=== PATIENT | female | born 1945 | race Caucasian/White ===

== ENCOUNTER → 2018-06-30 | Outpatient (CLI) | payer MEDICARE, BC ==
[~2018-06-30] MED LIST: BIOT25005 PO; CHOL200024 PO; CYCL5TAB PO; FERR324T8 PO; HYDR-3622 PO; HYDR25TA6 PO; LACT1CAP37 PO; LISI-170 PO; MAGN400T7 PO; ONDA8TAB9 PO; PANT40TA3 PO; POTA99TA2 PO; SERT100T PO; VIT1CAPS42 PO
[2018-06-30 16:31] LABS: BASOPHILS # (AUTO) 0.05 x10^3/uL (0-0.1); BASOPHILS % (AUTO) 1 % (0-1); EOSINOPHILS # (AUTO) 0.63 x10^3/uL (0-0.4); EOSINOPHILS % (AUTO) 6 % (1-7); LYMPHOCYTES # (AUTO) 3.23 x10^3/uL (1-3.4); LYMPHOCYTES % (AUTO) 30 % (22-44); MD NO; MEAN CORPUSCULAR HEMOGLOBIN 28.3 pg (27.0-34.8); MEAN CORPUSCULAR HGB CONC 32.3 g/dL (32.4-35.8); MEAN CORPUSCULAR VOLUME 87.7 fL (80-100); MEAN PLATELET VOLUME 7.7 fL (7.4-10.4); MONOCYTES # (AUTO) 1.04 x10^3/uL (0.2-0.8); MONOCYTES % (AUTO) 9 % (2-9); NEUTROPHILS # (AUTO) 6.01 x10^3/uL (1.8-6.8); NEUTROPHILS % (AUTO) 55 % (42-75); PLATELET COUNT 439 x10^3/uL (130-400); RED BLOOD COUNT 4.29 x10^6/uL (3.82-5.3); RED CELL DISTRIBUTION WIDTH 16.1 % (9.6-15.2)
[2018-06-30 16:38] LABS: INTERNATIONAL NORMALIZED RATIO 0.99 (0.93-1.1); PROTHROMBIN TIME 10.5 Seconds (9.6-11.5)
[2018-06-30 16:42] LABS: ALANINE AMINOTRANSFERASE 19 U/L (12-78); ALBUMIN 3.1 g/dL (3.4-5.0); ANION GAP 7 mmol/L (5-15); CALCIUM 9.3 mg/dL (8.5-10.1); CHLORIDE 102 mmol/L (98-107)
[2018-06-30 16:44] LABS: ALKALINE PHOSPHATASE 111 U/L (45-117); BILIRUBIN,TOTAL 0.2 mg/dL (0.2-1.0); CREATININE 0.81 mg/dL (0.55-1.02); TOTAL PROTEIN 7.8 g/dL (6.4-8.2)
[2018-06-30 17:36] LABS: HEMOGLOBIN A1C 6.4 % (4.2-6.3)
[2018-06-30 18:02] LABS: CULTURE INDICATED? NO; MICROSCOPIC NOT IND
== END | disposition home or self-care (01) ==
LOC: STAR 15:06
PROVIDERS: ATTEND Orthopaedic Surgery
DX: Z01.818 Encounter for other preprocedural examination (principal); T84.84XA Pain due to internal orthopedic prosthetic devices, implants and grafts, initial encounter; Z96.641 Presence of right artificial hip joint
CPT/HCPCS: 36415; 80053; 81003; 83036; 85025; 85610; 85730; 87081; 87806; 93005; G0475

== ENCOUNTER 2018-07-06 08:46 | Inpatient (IN) | payer MEDICARE, BC ==
[~2018-07-06] VITALS: Ht 162.6 cm; Wt 90.8 kg
[~2018-07-06 08:46] MED LIST changes: +EPINEPHRINE 1 MG/ML, 1ML ONE; +KETOROLAC 60 MG/2 ML ONE; +ROPIvacaine/PF 0.2%, 20 ML ONE; +SODIUM CHLORIDE 0.9% 100 ML ONE; +TRANEXAMIC ACID 100 MG/ML, 10ML ONE
[2018-07-06] MEDS ORDERED: LACTATED RINGERS 1,000 ML IV SCH (09:40)
[2018-07-06] MEDS ORDERED: BUPIVACAINE IMPLANT (09:45)
[2018-07-06] MEDS ORDERED: HYDROMORPHONE IMPLANT (09:45)
[2018-07-06] MEDS ORDERED: VANCOMYCIN PER PHARMACY MC ONE (09:47)
[2018-07-06 09:53] VITALS: BP 135/76
[2018-07-06] MEDS ORDERED: ACETAMINOPHEN 500 MG TABLET PO ONE (10:00)
[2018-07-06] MEDS ORDERED: GABAPENTIN 300 MG CAPSULE PO ONE (10:00)
[2018-07-06] MEDS ORDERED: VANCOMYCIN 1,700 MG in SODIUM CHLORIDE 0.9% 250 ML IV ONE (10:30)
[2018-07-06] MEDS ORDERED: FENTANYL PF 250 MCG/5ML ONE (14:33)
[2018-07-06] MEDS ORDERED: MIDAZOLAM 1 MG/ML, 2ML ONE (14:33)
[2018-07-06] MEDS ORDERED: SUCCINYLCHOLINE 20 MG/ML, 10ML ONE (16:00)
[2018-07-06] MEDS ORDERED: ROCURONIUM 10 MG/ML,10ML ONE (16:00)
[2018-07-06] MEDS ORDERED: CEFAZOLIN 1,000 MG ONE (16:00)
[2018-07-06] MEDS ORDERED: EPHEDRINE 50 MG/ML, 1ML ONE (16:00)
[2018-07-06] MEDS ORDERED: PROPOFOL 10 MG/ML, 20ML ONE (16:00)
[2018-07-06] MEDS ORDERED: VANCOMYCIN 1,000 MG ONE (16:38)
[2018-07-06] MEDS ORDERED: METHYLENE BLUE 10 MG/ML 10ML ONE (16:55)
[2018-07-06] MEDS ORDERED: PROMETHAZINE 12.5 MG SUPP PR PRN ×3 (18:00→20:30)
[2018-07-06] MEDS ORDERED: hydrALAzine 20 MG/ML, 1ML IV PRN (18:00)
[2018-07-06] MEDS ORDERED: OXYcodone 5 MG/5 ML ORAL.SOL UDC PO PRN (18:00)
[2018-07-06] MEDS ORDERED: LABETALOL 5MG/ML, 20ML IV PRN (18:00)
[2018-07-06] MEDS ORDERED: ONDANSETRON 2MG/ML, 2ML IV PRN ×2 (18:00→19:00)
[2018-07-06] MEDS ORDERED: ONDANSETRON ODT 8 MG PO PRN (18:00)
[2018-07-06] MEDS ORDERED: HYDROmorphone 2 MG/ML, 1ML ONE ×2 (18:55→19:49)
[2018-07-06] MEDS ORDERED: FENTANYL PF 100 MCG/2ML ONE (18:55)
[2018-07-06] MEDS ORDERED: ALUMINUM/MAG/SIMETHICONE 30 ML UDC PO PRN (19:00)
[2018-07-06] MEDS ORDERED: HYDROmorphone 1 MG/ML, 1ML IV PRN (19:00)
[2018-07-06] MEDS ORDERED: OXYcodone IR 5MG TABLET PO PRN (19:00)
[2018-07-06] MEDS ORDERED: ONDANSETRON 4 MG TABLET PO PRN (19:00)
[2018-07-06] MEDS ORDERED: LORazepam 1MG TABLET PO PRN (19:00)
[2018-07-06] MEDS ORDERED: BISACODYL 10 MG SUPP PR PRN (19:00)
[2018-07-06] MEDS ORDERED: DIPHENHYDRAMINE 50 MG CAPSULE PO PRN (19:00)
[2018-07-06] MEDS ORDERED: MAGNESIUM HYDROXIDE 8%, 30ML UDC PO PRN (19:00)
[2018-07-06] MEDS ORDERED: ZOLPIDEM 5MG TABLET PO PRN (19:00)
[2018-07-06] MEDS: FENTANYL PF 100 MCG/2ML IV PRN ×2 (19:00→19:48)
[2018-07-06] MEDS ORDERED: PROMETHAZINE 25 MG/ML, 1ML IM PRN (19:00)
[2018-07-06] MEDS ORDERED: SENNA/DOCUSATE TABLET PO PRN (19:00)
[2018-07-06] MEDS ORDERED: VANCOMYCIN PER PHARMACY MC PRN (19:00)
[2018-07-06] MEDS ORDERED: DIAZEPAM 5 MG TABLET PO PRN (19:00)
[2018-07-06] MEDS: HYDROmorphone 1 MG/ML, 1ML IV PRN ×6 (19:05→19:59)
[2018-07-06] MEDS ORDERED: ONDANSETRON 2MG/ML, 2ML ONE (19:14)
[2018-07-06] MEDS ORDERED: TRANEXAMIC ACID 1,000 MG in SODIUM CHLORIDE 0.9% 100 ML IVPB ONE (19:15)
[2018-07-06] MEDS ORDERED: OXYcodone 5 MG/5 ML ORAL.SOL UDC ONE (19:31)
[2018-07-06] MEDS ORDERED: PROMETHAZINE 25 MG/ML, 1ML ONE (20:02)
[2018-07-06] MEDS ORDERED: PROMETHAZINE 25 MG/ML, 1ML IV PRN (20:30)
[2018-07-06] MEDS ORDERED: PHARMACOKINETIC MONITORING MC PRN (21:30)
[2018-07-06] MEDS ORDERED: PHARMACOKINETIC CONSULTATION MC ONE (21:30)
[2018-07-06] MEDS: PANTOPROZOLE 40MG TABLET PO SCH (23:21)
[2018-07-06] MEDS: DOCUSATE 100 MG CAPSULE PO SCH (23:21)
[2018-07-06] MEDS: CYCLOBENZAPRINE 10 MG TABLET PO SCH (23:21)
[2018-07-06] MEDS: D5%-0.45% NACL 1,000 ML IV SCH (23:24)
[2018-07-07] VITALS (9 sets, daily range): BP systolic 80–106; BP diastolic 41–62
[2018-07-07] MEDS: CEFAZOLIN PMX 2GM/50ML 50 ML IVPB SCH ×3 (00:54→18:07)
[2018-07-07] MEDS: ACETAMINOPHEN 650 MG/20.3 ML UDC PO PRN ×2 (03:02→10:07)
[2018-07-07] MEDS: MULTIVITAMINS/MINERALS TABLET PO SCH (08:39)
[2018-07-07] MEDS: HYDROCHLOROTHIAZIDE 25 MG TABLET PO SCH (08:39)
[2018-07-07] MEDS: LISINOPRIL 20 MG TABLET PO SCH (08:39)
[2018-07-07] MEDS: SERTRALINE 100MG TABLET PO SCH (08:39)
[2018-07-07] MEDS: PANTOPROZOLE 40MG TABLET PO SCH (08:39)
[2018-07-07] MEDS: DOCUSATE 100 MG CAPSULE PO SCH ×2 (08:39→21:36)
[2018-07-07] MEDS: CYCLOBENZAPRINE 10 MG TABLET PO SCH ×2 (09:37→21:36)
[2018-07-07] MEDS: D5%-0.45% NACL 1,000 ML IV SCH (11:25)
[2018-07-07] MEDS ORDERED: SODIUM CHLORIDE 0.9%, 500ML IVBOLUS ONE (13:00)
[2018-07-07] MEDS: HYDROcodone/APAP 5/325 TABLET PO PRN ×2 (16:39→21:36)
[2018-07-07] MEDS ORDERED: VANCOMYCIN 1,700 MG in SODIUM CHLORIDE 0.9% 250 ML IV SCH (17:00)
[2018-07-07] MEDS: ASPIRIN 81 MG TABLET CHEW PO SCH (18:06)
[2018-07-07] MEDS: KETOROLAC 30 MG/1 ML IV SCH (18:07)
[2018-07-08] VITALS (10 sets, daily range): BP systolic 91–98; BP diastolic 46–61
[2018-07-08] MEDS ORDERED: CATHFLO-ALTEPLASE 2 MG/2 ML CATHFLUSH ONE (00:30)
[2018-07-08] MEDS: D5%-0.45% NACL 1,000 ML IV SCH ×2 (00:43→11:00)
[2018-07-08] MEDS: HYDROcodone/APAP 5/325 TABLET PO PRN ×5 (01:35→21:15)
[2018-07-08] MEDS: CEFAZOLIN PMX 2GM/50ML 50 ML IVPB SCH ×3 (02:32→18:50)
[2018-07-08] MEDS: KETOROLAC 30 MG/1 ML IV SCH ×2 (03:20→11:16)
[2018-07-08 03:21] LABS: BASOPHILS # (AUTO) 0.07 x10^3/uL (0-0.1); BASOPHILS % (AUTO) 1 % (0-1); EOSINOPHILS # (AUTO) 0.57 x10^3/uL (0-0.4); EOSINOPHILS % (AUTO) 7 % (1-7); LYMPHOCYTES # (AUTO) 1.91 x10^3/uL (1-3.4); LYMPHOCYTES % (AUTO) 24 % (22-44); MD NO; MEAN CORPUSCULAR HEMOGLOBIN 29.5 pg (27.0-34.8); MEAN CORPUSCULAR HGB CONC 33.2 g/dL (32.4-35.8); MEAN CORPUSCULAR VOLUME 88.9 fL (80-100); MEAN PLATELET VOLUME 7.5 fL (7.4-10.4); MONOCYTES # (AUTO) 0.84 x10^3/uL (0.2-0.8); MONOCYTES % (AUTO) 11 % (2-9); NEUTROPHILS # (AUTO) 4.59 x10^3/uL (1.8-6.8); NEUTROPHILS % (AUTO) 58 % (42-75); PLATELET COUNT 233 x10^3/uL (130-400); RED BLOOD COUNT 2.22 x10^6/uL (3.82-5.3); RED CELL DISTRIBUTION WIDTH 15.9 % (9.6-15.2)
[2018-07-08 03:33] LABS: ALANINE AMINOTRANSFERASE 11 U/L (12-78); ALBUMIN 1.9 g/dL (3.4-5.0); ANION GAP 4 mmol/L (5-15); CALCIUM 7.6 mg/dL (8.5-10.1); CHLORIDE 106 mmol/L (98-107)
[2018-07-08 03:40] LABS: ALKALINE PHOSPHATASE 66 U/L (45-117); BILIRUBIN,TOTAL 0.1 mg/dL (0.2-1.0); TOTAL PROTEIN 4.7 g/dL (6.4-8.2)
[2018-07-08] MEDS: ASPIRIN 81 MG TABLET CHEW PO SCH ×2 (07:23→17:17)
[2018-07-08] MEDS: CYCLOBENZAPRINE 10 MG TABLET PO SCH ×2 (09:58→20:22)
[2018-07-08] MEDS: PANTOPROZOLE 40MG TABLET PO SCH (09:58)
[2018-07-08] MEDS: DOCUSATE 100 MG CAPSULE PO SCH ×2 (09:59→20:22)
[2018-07-08] MEDS: MULTIVITAMINS/MINERALS TABLET PO SCH (09:59)
[2018-07-08] MEDS: LISINOPRIL 20 MG TABLET PO SCH (09:59)
[2018-07-08] MEDS: HYDROCHLOROTHIAZIDE 25 MG TABLET PO SCH (09:59)
[2018-07-08] MEDS: SERTRALINE 100MG TABLET PO SCH (09:59)
[2018-07-09] VITALS (8 sets, daily range): BP systolic 104–138; BP diastolic 61–72
[2018-07-09] MEDS: D5%-0.45% NACL 1,000 ML IV SCH ×3 (00:31→21:00)
[2018-07-09] MEDS: CEFAZOLIN PMX 2GM/50ML 50 ML IVPB SCH ×2 (01:58→10:25)
[2018-07-09] MEDS: HYDROcodone/APAP 5/325 TABLET PO PRN ×5 (02:02→21:19)
[2018-07-09] MEDS: ASPIRIN 81 MG TABLET CHEW PO SCH ×2 (06:11→17:38)
[2018-07-09] MEDS: PANTOPROZOLE 40MG TABLET PO SCH (09:27)
[2018-07-09] MEDS: SERTRALINE 100MG TABLET PO SCH (09:27)
[2018-07-09] MEDS: CYCLOBENZAPRINE 10 MG TABLET PO SCH ×2 (09:28→21:14)
[2018-07-09] MEDS: HYDROCHLOROTHIAZIDE 25 MG TABLET PO SCH (09:28)
[2018-07-09] MEDS: DOCUSATE 100 MG CAPSULE PO SCH ×2 (09:28→21:14)
[2018-07-09] MEDS: LISINOPRIL 20 MG TABLET PO SCH (09:28)
[2018-07-09] MEDS: MULTIVITAMINS/MINERALS TABLET PO SCH (09:32)
[2018-07-09] MEDS: ERTAPENEM 1 GM in SODIUM CHLORIDE 0.9% 50 ML IV SCH (18:23)
[2018-07-10 01:57] VITALS: BP 115/73
[2018-07-10] MEDS: HYDROcodone/APAP 5/325 TABLET PO PRN ×5 (03:06→23:03)
[2018-07-10] MEDS: ASPIRIN 81 MG TABLET CHEW PO SCH ×2 (06:01→17:50)
[2018-07-10] MEDS: D5%-0.45% NACL 1,000 ML IV SCH ×2 (06:03→17:12)
[2018-07-10 06:53] LABS: MEAN CORPUSCULAR HEMOGLOBIN 30.6 pg (27.0-34.8); MEAN CORPUSCULAR HGB CONC 33.8 g/dL (32.4-35.8); MEAN CORPUSCULAR VOLUME 90.6 fL (80-100); MEAN PLATELET VOLUME 7.7 fL (7.4-10.4); PLATELET COUNT 302 x10^3/uL (130-400); RED BLOOD COUNT 3.08 x10^6/uL (3.82-5.3); RED CELL DISTRIBUTION WIDTH 15.5 % (9.6-15.2)
[2018-07-10 07:25] LABS: BASOPHILS # (AUTO) 0.08 x10^3/uL (0-0.1); BASOPHILS % (AUTO) 1 % (0-1); EOSINOPHILS # (AUTO) 0.73 x10^3/uL (0-0.4); EOSINOPHILS % (AUTO) 9 % (1-7); LYMPHOCYTES # (AUTO) 2.72 x10^3/uL (1-3.4); LYMPHOCYTES % (AUTO) 34 % (22-44); MD MORPH REVIEW ONLY; MONOCYTES % (AUTO) 9 % (2-9); NEUTROPHILS # (AUTO) 3.71 x10^3/uL (1.8-6.8); NEUTROPHILS % (AUTO) 47 % (42-75)
[2018-07-10 07:26] LABS: <PLATELET ESTIMATE> ADEQUATE; <PLT MORPHOLOGY> NORMAL PLT MORPH; ANISOCYTOSIS 1+; POLYCHROMASIA 1+
[2018-07-10] MEDS: HYDROCHLOROTHIAZIDE 25 MG TABLET PO SCH (07:51)
[2018-07-10] MEDS: PANTOPROZOLE 40MG TABLET PO SCH (07:51)
[2018-07-10] MEDS: MULTIVITAMINS/MINERALS TABLET PO SCH (07:51)
[2018-07-10] MEDS: LISINOPRIL 20 MG TABLET PO SCH (07:54)
[2018-07-10] MEDS: SERTRALINE 100MG TABLET PO SCH (07:55)
[2018-07-10] MEDS: DOCUSATE 100 MG CAPSULE PO SCH ×2 (07:55→19:48)
[2018-07-10] MEDS: CYCLOBENZAPRINE 10 MG TABLET PO SCH ×2 (07:55→19:48)
[2018-07-10 07:57] VITALS: BP 137/68
[2018-07-10 14:35] VITALS: BP 111/67
[2018-07-10] MEDS ORDERED: ERTA1VIA IVPB (15:12)
[2018-07-10] MEDS: ERTAPENEM 1 GM in SODIUM CHLORIDE 0.9% 50 ML IV SCH (17:51)
[2018-07-10 19:27] VITALS: BP 111/65
== END 2018-07-11 01:00 | DRG 466 ==
LOC: ORIP 08:46 → 4NOR 20:50
PROVIDERS: ADMIT Orthopaedic Surgery; ATTEND Orthopaedic Surgery
PROC: 0SR90EZ Replacement of Right Hip Joint with Articulating Spacer, Open Approach (ICD-10-PCS; 2018-07-06)
PROC: 0SP90JZ Removal of Synthetic Substitute from Right Hip Joint, Open Approach (ICD-10-PCS; principal; 2018-07-06 13:15)
PROC: 30233N1 Transfusion of Nonautologous Red Blood Cells into Peripheral Vein, Percutaneous Approach (ICD-10-PCS; 2018-07-07)
DX: T84.51XA Infection and inflammatory reaction due to internal right hip prosthesis, initial encounter (principal); E43 Unspecified severe protein-calorie malnutrition; D62 Acute posthemorrhagic anemia; Y92.89 Other specified places as the place of occurrence of the external cause; Y83.1 Surgical operation with implant of artificial internal device as the cause of abnormal reaction of the patient, or of later complication, without mention of misadventure at the time of the procedure; I10 Essential (primary) hypertension; G89.29 Other chronic pain; Z85.028 Personal history of other malignant neoplasm of stomach; Z82.3 Family history of stroke; Z83.3 Family history of diabetes mellitus; Z86.19 Personal history of other infectious and parasitic diseases; Z87.891 Personal history of nicotine dependence; Z88.8 Allergy status to other drugs, medicaments and biological substances; Z98.1 Arthrodesis status
CPT/HCPCS: 36415; 71045; 72170; 80053; 82310; 85014; 85018; 85025; 86140; 86850; 86900; 86923; 87015; 87070; 87075; 87077; 87102; 87116; 87176; 87181; 87205; 87206; C1713; G0378; J0171; J0690; J1170; J1335; J1885; J2250; J2405; J2550; J2704; J2795; J2997; J3010; J3370; C1776; J0330; J7040; J7050; J7120; P9016; Q9968

== ENCOUNTER 2018-09-28 07:15 | Inpatient (IN) | payer MEDICARE, BC ==
[~2018-09-28] VITALS: Ht 162.6 cm; Wt 98.5 kg
[~2018-09-28 07:15] MED LIST changes: +BUPIVACAINE 0.25% ONE; +BUPIVACAINE IMPLANT; +BUPIVACAINE/PF 0.5% ONE; +ERTA1VIA IVPB; +HYDROMORPHONE IMPLANT; +LIDOCAINE 1%, 20ML ONE; -SODIUM CHLORIDE 0.9% 100 ML ONE; +SODIUM CHLORIDE 0.9% 50 ML ONE; +TRIAMCINOLONE ACETONIDE 40 MG/ML, 1ML ONE; +VANCOMYCIN 1,000 MG ONE
[2018-09-28] MEDS ORDERED: VANCOMYCIN PER PHARMACY MC STA (07:34)
[2018-09-28] MEDS ORDERED: PLEASE ENTER HEIGHT AND WEIGHT MC SCH (08:00)
[2018-09-28] MEDS ORDERED: LACTATED RINGERS 1,000 ML IV SCH (08:01)
[2018-09-28] MEDS ORDERED: TRAM50TA2 PO (08:09)
[2018-09-28] MEDS ORDERED: OXYC5CAP2 PO (08:09)
[2018-09-28] MEDS ORDERED: CYCL5TAB PO (08:09)
[2018-09-28] MEDS ORDERED: ASCO100019 PO (08:09)
[2018-09-28] MEDS ORDERED: CELE200C PO (08:09)
[2018-09-28] MEDS ORDERED: GABAPENTIN 300 MG CAPSULE PO STA (08:20)
[2018-09-28] MEDS ORDERED: LIDOCAINE-MPF 1%, 2ML INFIL ONE (08:30)
[2018-09-28] MEDS ORDERED: VANCOMYCIN 1,900 MG in SODIUM CHLORIDE 0.9% 250 ML IV ONE (08:30)
[2018-09-28] MEDS ORDERED: MIDAZOLAM 1 MG/ML, 2ML ONE (08:48)
[2018-09-28] MEDS ORDERED: FENTANYL PF 250 MCG/5ML ONE (08:48)
[2018-09-28] MEDS ORDERED: MEPERIDINE/PF 25MG/0.5ML IVPush PRN (09:00)
[2018-09-28] MEDS ORDERED: OXYcodone 5 MG/5 ML ORAL.SOL UDC PO PRN (09:00)
[2018-09-28] MEDS ORDERED: LABETALOL 5MG/ML, 20ML IV PRN (09:00)
[2018-09-28] MEDS ORDERED: MORPHINE SULFATE 4 MG/ML, 1ML IVPush PRN (09:00)
[2018-09-28] MEDS ORDERED: LORazepam 2 MG/ML, 1ML IVPush PRN ×2 (09:00→13:00)
[2018-09-28] MEDS ORDERED: METOCLOPRAMIDE 5 MG/ML, 2ML IV PRN (09:00)
[2018-09-28] MEDS ORDERED: ACETAMINOPHEN 325 MG TABLET PO PRN (09:00)
[2018-09-28] MEDS ORDERED: hydrALAzine 20 MG/ML, 1ML IV PRN (09:00)
[2018-09-28] MEDS ORDERED: ONDANSETRON 2MG/ML, 2ML ONE (10:27)
[2018-09-28] MEDS ORDERED: NEOSTIGMINE 1 MG/ML, 10ML ONE (10:27)
[2018-09-28] MEDS ORDERED: SUCCINYLCHOLINE 20 MG/ML, 10ML ONE (10:27)
[2018-09-28] MEDS ORDERED: ROCURONIUM 10MG/ML,5ML ONE (10:27)
[2018-09-28] MEDS ORDERED: PROPOFOL 10 MG/ML, 20ML ONE (10:27)
[2018-09-28] MEDS ORDERED: DEXAMETHASONE 4 MG/ML, 1ML ONE (10:27)
[2018-09-28] MEDS ORDERED: GLYCOPYRROLATE 0.2MG/1ML, 5ML ONE (10:27)
[2018-09-28] MEDS ORDERED: CEFAZOLIN 1,000 MG ONE (10:27)
[2018-09-28] MEDS ORDERED: ROPIvacaine/PF 0.2%, 20 ML INFIL ONE (10:46)
[2018-09-28] MEDS ORDERED: TRANEXAMIC ACID 100 MG/ML, 10ML IVPB ONE (10:46)
[2018-09-28] MEDS ORDERED: EPINEPHRINE 1 MG/ML, 1ML INFIL ONE (10:46)
[2018-09-28] MEDS ORDERED: VANCOMYCIN 1,000 MG IM ONE (10:46)
[2018-09-28] MEDS ORDERED: KETOROLAC 60 MG/2 ML IM ONE (10:46)
[2018-09-28] MEDS: POTASSIUM CHLORIDE 30 MEQ in SODIUM CHLORIDE 0.9% 1,000 ML IV SCH ×2 (12:48→22:57)
[2018-09-28] MEDS ORDERED: HYDROmorphone 1 MG/ML, 1ML VIAL ONE (12:59)
[2018-09-28] MEDS ORDERED: ACETAMINOPHEN 650 MG/20.3 ML UDC ONE (12:59)
[2018-09-28] MEDS ORDERED: OXYcodone 5 MG/5 ML ORAL.SOL UDC ONE (12:59)
[2018-09-28] MEDS ORDERED: FENTANYL PF 100 MCG/2ML ONE (12:59)
[2018-09-28] MEDS ORDERED: ALUMINUM/MAG/SIMETHICONE 30 ML UDC PO PRN (13:00)
[2018-09-28] MEDS ORDERED: TRANEXAMIC ACID 1,000 MG in SODIUM CHLORIDE 0.9% 100 ML IVPB ONE (13:00)
[2018-09-28] MEDS ORDERED: SENNA/DOCUSATE TABLET PO PRN (13:00)
[2018-09-28] MEDS ORDERED: ONDANSETRON 4 MG TABLET PO PRN (13:00)
[2018-09-28] MEDS ORDERED: ZOLPIDEM 5MG TABLET PO PRN (13:00)
[2018-09-28] MEDS ORDERED: DIAZEPAM 5 MG TABLET PO PRN (13:00)
[2018-09-28] MEDS ORDERED: DIPHENHYDRAMINE 25 MG CAPSULE PO PRN (13:00)
[2018-09-28] MEDS ORDERED: PROMETHAZINE 12.5 MG SUPP PR PRN (13:00)
[2018-09-28] MEDS ORDERED: MAGNESIUM HYDROXIDE 8%, 30ML UDC PO PRN (13:00)
[2018-09-28] MEDS ORDERED: LORazepam 1MG TABLET PO PRN (13:00)
[2018-09-28] MEDS ORDERED: HYDROmorphone 1 MG/ML, 1ML INJ IV PRN (13:00)
[2018-09-28] MEDS ORDERED: ONDANSETRON 2MG/ML, 2ML IV PRN (13:00)
[2018-09-28] MEDS: FENTANYL PF 100 MCG/2ML IV PRN ×2 (13:00→13:15)
[2018-09-28] MEDS ORDERED: PROMETHAZINE 25 MG/ML, 1ML IM PRN (13:00)
[2018-09-28] MEDS ORDERED: ACETAMINOPHEN 650 MG/20.3 ML UDC PO PRN (13:00)
[2018-09-28] MEDS: HYDROmorphone 2 MG/ML, 1ML IVPush PRN ×3 (13:03→13:41)
[2018-09-28] MEDS: HYDROcodone/APAP 5/325 TABLET PO PRN ×3 (14:38→22:35)
[2018-09-28] MEDS: ASPIRIN 81 MG TABLET EC PO SCH (18:38)
[2018-09-28 20:03] VITALS: BP 96/61
[2018-09-28] MEDS ORDERED: PANTOPROZOLE 40MG TABLET PO SCH (21:00)
[2018-09-28] MEDS: CEFAZOLIN PMX 2GM/50ML 50 ML IVPB SCH (21:56)
[2018-09-28] MEDS: DOCUSATE 100 MG CAPSULE PO SCH (21:56)
[2018-09-28 23:59] VITALS: BP 107/66
[2018-09-29] MEDS: HYDROcodone/APAP 5/325 TABLET PO PRN (02:32)
[2018-09-29 03:15] VITALS: BP 117/62
[2018-09-29 03:54] VITALS: BP 93/58
[2018-09-29] MEDS ORDERED: DEXAMETHASONE 4 MG/ML, 1ML IVPush SCH (06:00)
[2018-09-29] MEDS: CEFAZOLIN PMX 2GM/50ML 50 ML IVPB SCH (06:15)
[2018-09-29] MEDS: ASPIRIN 81 MG TABLET EC PO SCH ×2 (06:16→17:28)
[2018-09-29] MEDS: OXYcodone IR 5MG TABLET PO PRN ×4 (06:16→20:05)
[2018-09-29 06:54] VITALS: BP 104/55
[2018-09-29] MEDS: PANTOPROZOLE 40MG TABLET PO SCH ×2 (07:59→16:08)
[2018-09-29] MEDS: HYDROCHLOROTHIAZIDE 25 MG TABLET PO SCH (08:00)
[2018-09-29] MEDS: SERTRALINE 100MG TABLET PO SCH (08:01)
[2018-09-29] MEDS: DOCUSATE 100 MG CAPSULE PO SCH ×2 (08:01→20:05)
[2018-09-29] MEDS: MULTIVITAMINS/MINERALS TABLET PO SCH (08:02)
[2018-09-29] MEDS: LISINOPRIL 20 MG TABLET PO SCH (08:03)
[2018-09-29] MEDS: POTASSIUM CHLORIDE 30 MEQ in SODIUM CHLORIDE 0.9% 1,000 ML IV SCH ×2 (08:03→18:19)
[2018-09-29 13:14] VITALS: BP 108/62
[2018-09-29] MEDS: KETOROLAC 30 MG/1 ML IV SCH ×2 (13:34→20:05)
[2018-09-29 20:02] VITALS: BP 96/58
[2018-09-30] MEDS: OXYcodone IR 5MG TABLET PO PRN ×6 (00:17→21:59)
[2018-09-30 02:13] VITALS: BP 100/48
[2018-09-30] MEDS: KETOROLAC 30 MG/1 ML IV SCH (04:19)
[2018-09-30] MEDS: POTASSIUM CHLORIDE 30 MEQ in SODIUM CHLORIDE 0.9% 1,000 ML IV SCH ×2 (05:24→14:56)
[2018-09-30] MEDS: ASPIRIN 81 MG TABLET EC PO SCH (06:30)
[2018-09-30 07:26] VITALS: BP 108/54
[2018-09-30] MEDS: PANTOPROZOLE 40MG TABLET PO SCH ×2 (07:50→16:55)
[2018-09-30] MEDS: MULTIVITAMINS/MINERALS TABLET PO SCH (07:50)
[2018-09-30] MEDS: HYDROCHLOROTHIAZIDE 25 MG TABLET PO SCH (07:50)
[2018-09-30] MEDS: DOCUSATE 100 MG CAPSULE PO SCH ×2 (07:50→21:59)
[2018-09-30] MEDS: LISINOPRIL 20 MG TABLET PO SCH (07:50)
[2018-09-30] MEDS: SERTRALINE 100MG TABLET PO SCH (07:50)
[2018-09-30 13:45] VITALS: BP 111/63
[2018-09-30] MEDS: BISACODYL 10 MG SUPP PR PRN (18:09)
[2018-09-30 20:12] VITALS: BP 127/63
[2018-10-01] MEDS: POTASSIUM CHLORIDE 30 MEQ in SODIUM CHLORIDE 0.9% 1,000 ML IV SCH ×3 (01:42→19:18)
[2018-10-01] MEDS: OXYcodone IR 5MG TABLET PO PRN ×5 (02:07→23:16)
[2018-10-01 03:00] VITALS: BP 106/60
[2018-10-01] MEDS: PANTOPROZOLE 40MG TABLET PO SCH ×2 (07:47→16:13)
[2018-10-01 08:11] VITALS: BP 124/73
[2018-10-01] MEDS ORDERED: SULF1TAB24 PO (08:27)
[2018-10-01] MEDS ORDERED: CEPH-368 PO (08:28)
[2018-10-01] MEDS ORDERED: DOCU-131 PO (08:29)
[2018-10-01] MEDS: SERTRALINE 100MG TABLET PO SCH (08:30)
[2018-10-01] MEDS ORDERED: ONDA4TAB7 PO (08:30)
[2018-10-01] MEDS: DOCUSATE 100 MG CAPSULE PO SCH ×2 (08:30→20:14)
[2018-10-01] MEDS: MULTIVITAMINS/MINERALS TABLET PO SCH (08:30)
[2018-10-01] MEDS: HYDROCHLOROTHIAZIDE 25 MG TABLET PO SCH (08:30)
[2018-10-01] MEDS: LISINOPRIL 20 MG TABLET PO SCH (08:30)
[2018-10-01] MEDS ORDERED: TRAM50TA2 PO (08:31)
[2018-10-01] MEDS ORDERED: OXYC10TA6 PO (08:35)
[2018-10-01 13:23] VITALS: BP 109/65
[2018-10-01 18:33] VITALS: BP 116/69
[2018-10-02 00:17] VITALS: BP 111/66
[2018-10-02] MEDS: OXYcodone IR 5MG TABLET PO PRN ×3 (03:33→15:23)
[2018-10-02 07:27] VITALS: BP 101/64
[2018-10-02] MEDS: DOCUSATE 100 MG CAPSULE PO SCH (09:04)
[2018-10-02] MEDS: HYDROCHLOROTHIAZIDE 25 MG TABLET PO SCH (09:04)
[2018-10-02] MEDS: LISINOPRIL 20 MG TABLET PO SCH (09:05)
[2018-10-02] MEDS: SERTRALINE 100MG TABLET PO SCH (09:05)
[2018-10-02] MEDS: MULTIVITAMINS/MINERALS TABLET PO SCH (09:05)
[2018-10-02] MEDS: POTASSIUM CHLORIDE 30 MEQ in SODIUM CHLORIDE 0.9% 1,000 ML IV SCH (09:10)
[2018-10-02] MEDS: PANTOPROZOLE 40MG TABLET PO SCH ×2 (09:10→17:08)
[2018-10-02] MEDS: BISACODYL 10 MG SUPP PR PRN (10:13)
[2018-10-02 15:23] VITALS: BP 110/70
[2018-10-02 17:10] VITALS: BP 124/77
== END 2018-10-02 17:40 | DRG 466 ==
LOC: ORIP 07:15 → 4NOR 14:03
PROVIDERS: ADMIT Orthopaedic Surgery; ATTEND Orthopaedic Surgery
PROC: 0SPA0JZ Removal of Synthetic Substitute from Right Hip Joint, Acetabular Surface, Open Approach (ICD-10-PCS; 2018-09-28)
PROC: 0SP909Z Removal of Liner from Right Hip Joint, Open Approach (ICD-10-PCS; 2018-09-28)
PROC: 0SUA09Z Supplement Right Hip Joint, Acetabular Surface with Liner, Open Approach (ICD-10-PCS; 2018-09-28)
PROC: 0SP90EZ Removal of Articulating Spacer from Right Hip Joint, Open Approach (ICD-10-PCS; 2018-09-28)
PROC: 0SR90EZ Replacement of Right Hip Joint with Articulating Spacer, Open Approach (ICD-10-PCS; 2018-09-28)
PROC: 0SRA03Z Replacement of Right Hip Joint, Acetabular Surface with Ceramic Synthetic Substitute, Open Approach (ICD-10-PCS; principal; 2018-09-28 09:45)
DX: Z47.32 Aftercare following explantation of hip joint prosthesis (principal); J96.20 Acute and chronic respiratory failure, unspecified whether with hypoxia or hypercapnia; R71.0 Precipitous drop in hematocrit; Z96.641 Presence of right artificial hip joint; Y83.8 Other surgical procedures as the cause of abnormal reaction of the patient, or of later complication, without mention of misadventure at the time of the procedure; J44.9 Chronic obstructive pulmonary disease, unspecified; M19.90 Unspecified osteoarthritis, unspecified site; K21.9 Gastro-esophageal reflux disease without esophagitis; G89.29 Other chronic pain; I10 Essential (primary) hypertension; Y92.89 Other specified places as the place of occurrence of the external cause
CPT/HCPCS: 36415; 72170; 85014; 85018; 86850; 86900; 87015; 87070; 87075; 87102; 87116; 87205; 87206; C1713; G0378; J0171; J0690; J1100; J1170; J1885; J2250; J2405; J2704; J2710; J2795; J3010; J3301; J3370; J3480; J3490; C1776; J0330; J7030; J7050; J7120

== ENCOUNTER 2020-10-13 06:14 | Day surgery (SDC) | payer MEDICARE, BC ==
[~2020-10-13] VITALS: Ht 165.1 cm; Wt 90.6 kg
[~2020-10-13 06:14] MED LIST changes: +ASCO100019 PO; -BUPIVACAINE 0.25% ONE; -BUPIVACAINE/PF 0.5% ONE; +CELE200C PO; +CEPH-368 PO; +DOCU-131 PO; -EPINEPHRINE 1 MG/ML, 1ML ONE; -KETOROLAC 60 MG/2 ML ONE; -LIDOCAINE 1%, 20ML ONE; -MAGN400T7 PO; +MAGN400T9 PO; +MIRT-37 PO; +ONDA4TAB7 PO; +ONDA8TAB16 SL; +OXYC10TA6 PO; +OXYC1TAB18 PO; +OXYC5CAP2 PO; -ROPIvacaine/PF 0.2%, 20 ML ONE; -SODIUM CHLORIDE 0.9% 50 ML ONE; +SULF-23 PO; +TRAM50TA2 PO; -TRANEXAMIC ACID 100 MG/ML, 10ML ONE; -TRIAMCINOLONE ACETONIDE 40 MG/ML, 1ML ONE; -VANCOMYCIN 1,000 MG ONE; +flexeril PO
[2020-10-13 06:37] VITALS: BP 167/72
[2020-10-13] MEDS ORDERED: EPINEPHRINE 1 MG/ML, 1ML ONE (06:41)
[2020-10-13] MEDS ORDERED: ROPIvacaine/PF 0.2%, 20 ML ONE (06:41)
[2020-10-13] MEDS ORDERED: TRANEXAMIC ACID 100 MG/ML, 10ML ONE (06:41)
[2020-10-13] MEDS ORDERED: SODIUM CHLORIDE 0.9% 50 ML ONE (06:41)
[2020-10-13] MEDS ORDERED: KETOROLAC 60 MG/2 ML ONE ×2 (06:41→07:47)
[2020-10-13] MEDS ORDERED: CHLORHEXIDINE 15 ML UDC ONE (06:42)
[2020-10-13] MEDS ORDERED: OXYcodone 5 MG/5 ML ORAL.SOL UDC PO PRN ×2 (07:00→07:30)
[2020-10-13] MEDS ORDERED: LIDOCAINE-MPF 1%, 2ML INFIL ONE (07:00)
[2020-10-13] MEDS ORDERED: KETOROLAC 30 MG/1 ML IVPush SCH (07:00)
[2020-10-13] MEDS ORDERED: LACTATED RINGERS 1,000 ML IV SCH (07:00)
[2020-10-13] MEDS ORDERED: ACETAMINOPHEN 325 MG TABLET PO PRN (07:00)
[2020-10-13] MEDS ORDERED: ONDANSETRON 2MG/ML, 2ML IVPush PRN (07:00)
[2020-10-13] MEDS ORDERED: CHLORHEXIDINE 15 ML UDC PO ONE (07:00)
[2020-10-13] MEDS ORDERED: FENTANYL PF 100 MCG/2ML ONE ×3 (07:19→08:43)
[2020-10-13] MEDS ORDERED: PROMETHAZINE 25 MG/ML, 1ML IVPush PRN (07:30)
[2020-10-13] MEDS ORDERED: MEPERIDINE/PF 25MG/0.5ML IVPush PRN (07:30)
[2020-10-13] MEDS ORDERED: DIPHENHYDRAMINE 50 MG/ML, 1ML IVPush PRN (07:30)
[2020-10-13] MEDS ORDERED: HALOPERIDOL 5 MG/ML IV PRN (07:30)
[2020-10-13] MEDS ORDERED: hydrALAzine 20 MG/ML, 1ML IV PRN (07:30)
[2020-10-13] MEDS ORDERED: HYDROmorphone 1 MG/ML, 1ML INJ IVPush PRN (07:30)
[2020-10-13] MEDS ORDERED: LABETALOL 5MG/ML, 20ML IV PRN (07:30)
[2020-10-13] MEDS ORDERED: VANCOMYCIN 1,000 MG ONE (07:47)
[2020-10-13] MEDS ORDERED: GLYCOPYRROLATE 0.2MG/1ML, 5ML ONE (08:12)
[2020-10-13] MEDS ORDERED: DEXAMETHASONE 4 MG/ML, 1ML ONE (08:12)
[2020-10-13] MEDS ORDERED: PROPOFOL 10 MG/ML, 20ML ONE (08:12)
[2020-10-13] MEDS ORDERED: ROCURONIUM 10MG/ML,5ML ONE (08:12)
[2020-10-13] MEDS ORDERED: NEOSTIGMINE 1 MG/ML, 10ML ONE (08:12)
[2020-10-13] MEDS ORDERED: ONDANSETRON 2MG/ML, 2ML ONE (08:12)
[2020-10-13] MEDS ORDERED: SUCCINYLCHOLINE 20 MG/ML, 10ML ONE (08:12)
[2020-10-13] MEDS ORDERED: CEFAZOLIN 1,000 MG ONE (08:12)
[2020-10-13] MEDS ORDERED: ACETAMINOPHEN 650 MG/20.3 ML UDC ONE (08:29)
[2020-10-13] MEDS ORDERED: OXYcodone 5 MG/5 ML ORAL.SOL UDC ONE (08:30)
[2020-10-13] MEDS: FENTANYL PF 100 MCG/2ML IV PRN ×4 (08:31→08:52)
[2020-10-13] MEDS ORDERED: HYDROmorphone 1 MG/ML, 1ML INJ ONE (08:54)
[2020-10-13] MEDS ORDERED: ACETAMINOPHEN 500 MG TABLET PO PRN (09:00)
== END 2020-10-13 10:30 | disposition home or self-care (01) ==
LOC: OUT 06:14
PROVIDERS: ATTEND Orthopaedic Surgery
DX: T84.84XA Pain due to internal orthopedic prosthetic devices, implants and grafts, initial encounter (principal); I10 Essential (primary) hypertension; K21.9 Gastro-esophageal reflux disease without esophagitis; G47.33 Obstructive sleep apnea (adult) (pediatric); J44.9 Chronic obstructive pulmonary disease, unspecified; Z88.8 Allergy status to other drugs, medicaments and biological substances; Y83.8 Other surgical procedures as the cause of abnormal reaction of the patient, or of later complication, without mention of misadventure at the time of the procedure; Z96.641 Presence of right artificial hip joint; Z87.891 Personal history of nicotine dependence; Z85.028 Personal history of other malignant neoplasm of stomach; Z20.822 Contact with and (suspected) exposure to COVID-19
CPT/HCPCS: 20680; J0171; J0330; J0690; J1100; J1170; J1885; J2405; J2704; J2795; J3010; J3370; J7120; U0003; J2710

== ENCOUNTER 2020-10-14 11:24 | Emergency (ER) | payer MEDICARE, BC ==
[~2020-10-14] VITALS: Ht 165.1 cm; Wt 93.8 kg
[2020-10-14 11:27] VITALS: BP 138/41
--- NOTE | 2020-10-14 11:56 | NUR ---
POC discussed. Called central supply to ordered Cannister.
--- NOTE | 2020-10-14 13:15 | NUR ---
Wound vac new machine and canbnister, tubing in place, appears to be suctioning well. No clogging. Extra supplies with family. ERP aware.
== END 2020-10-14 13:53 | disposition home or self-care (01) ==
LOC: ED 12:24
DX: Z48.00 Encounter for change or removal of nonsurgical wound dressing (principal)
CPT/HCPCS: 99281